=== PATIENT | female | born 1940 | race Caucasian/White ===

== ENCOUNTER 2017-09-09 08:29 | Day surgery (SDC) | payer MEDICARE, OTHER ==
[~2017-09-09 08:29] MED LIST: ACIPHEX20 MG PO; ADULT LOW DOSE81 MG PO; ARMOUR THYROID30 MG PO; CYMBALTA60 MG PO; FOLBIC RF TABL1 EACH PO; GLUCOPHAGE XR750 MG PO; K-TAB ER20 MEQ PO; MAGNESIUM400 MG PO; NORCO 7.5-3251 EACH PO; OMEGA 3 1,0001 EACH PO; SM GLUCOSAMINE1 EACH PO; TENORMIN50 MG PO; TRIAMTERENE-HC1 EAC1 PO; VITAMIN D-32000 UNIT PO
--- NOTE | 2017-09-09 08:54 | NUR ---
PATIENT ARRIVED TO DAY SURGERY AMBULATORY. PLACED IN ROOM 7. PATIENT VERIFIED BY NAME AND . ALLERGIES VERIFIED. CONSENT REVIEWED WITH PATIENT AND SIGNED. VS CHECKED. CALL LIGHT WITHIN REACH.
--- NOTE | 2017-09-09 09:37 | NUR ---
0935: BIOPTY BIOPSY PROCEDURE COMPLETE. DR. CARRINGTON ASSISTED BY OR NURSE FOR PROCEDURE. PATIENT TOLERATED PROCEDURE WELL. PATIENT DRESSED INDEPENDENTLY. PATIENT DISCHARGED TO HOME AMBULATORY.
--- NOTE | 2017-09-11 18:32 | OR ---
[facility] [address] [place], [place] [address] Signed DATE OF OPERATION: 09/09/2017 SURGEON: Tegan Carrington MD PREOPERATIVE DIAGNOSIS: Right subareolar mass. POSTOPERATIVE DIAGNOSIS: Right subareolar mass.. PROCEDURE: Right subareolar mass biopsy (Biopty gun biopsy). ANESTHESIA: 1% lidocaine. INDICATION: This 77-year-old white woman has a dense mass beneath the right areola. Imaging study shows uncertain findings. The biopsy is needed. She remains a patient of Dr. Meyers at this time. She has had thorough imaging by Dr. Higgins. A core biopsy with Biopty gun technique is recommended given the location of the lesion. She understands the risks of bleeding, infection, and so forth and wished to proceed. FINDINGS: The mass was dense and somewhat gritty and highly suspicious for malignancy. Four excellent core biopsies were obtained. DESCRIPTION OF PROCEDURE: In the supine position in the day surgery area, the periareolar area was prepared with a chlorhexidine solution and draped sterilely. A 1% lidocaine with epinephrine was injected locally. A small incision was made with an 11-blade. Using a Biopty gun biopsy device 14-gauge in size, four core biopsies were obtained without problem. These were sent for permanent pathology. A Band-Aid was applied. She tolerated the procedure well. Tegan Carrington MD Electronically Signed By: TEGAN CARRINGTON MD 09/11/17 1832 PATIENT NAME: SLIM SHAW OPERATIVE REPORT DATE OF : 36 REPORT #: [id number] PHYSICIAN: TEGAN CARRINGTON MD PCP: Anjali MEYERS MD REPORT IS CONFIDENTIAL AND NOT TO BE RELEASED WITHOUT AUTHORIZATION [address] [place], [place] [address] Signed /MEKA /[id number] cc: MD Anjali Anaya MD Copies: CONNIE HIGGINS MD, W NORMAN MD ~ Electronically Signed By: TEGAN CARRINGTON MD 09/11/17 1832 PATIENT NAME: SLIM SHAW OPERATIVE REPORT DATE OF : 38 REPORT #: [id number] PHYSICIAN: TEGAN CARRINGTON MD PCP: Anjali MEYERS MD REPORT IS CONFIDENTIAL AND NOT TO BE RELEASED WITHOUT AUTHORIZATION
[2017-09-11] MEDS ORDERED: SUCRALFATE1 GM/10 ML PO (19:59)
[2017-09-15] MEDS ORDERED: FENOFIBRATE54 MG PO (08:59)
[2017-09-15] MEDS ORDERED: JANUVIA100 MG PO (08:59)
== END 2017-09-09 18:00 | disposition home or self-care (01) ==
LOC: OPS 08:29 → DS 08:29 → OPS 09:30 → DS 09:30 → OPS 18:00
PROC: 0HBT3ZX Excision of Right Breast, Percutaneous Approach, Diagnostic (ICD-10-PCS; principal; 2017-09-09)
DX: C50.911 Malignant neoplasm of unspecified site of right female breast (principal); E11.9 Type 2 diabetes mellitus without complications; I10 Essential (primary) hypertension; E03.9 Hypothyroidism, unspecified; Z17.0 Estrogen receptor positive status [ER+]
CPT/HCPCS: 88305; 88342; 88360; 88377

== ENCOUNTER 2017-09-19 13:25 | Day surgery (SDC) | payer MEDICARE, OTHER ==
[~2017-09-19] VITALS: Ht 172.7 cm; Wt 75.6 kg
[~2017-09-19 13:25] MED LIST changes: +FENOFIBRATE54 MG PO; +JANUVIA100 MG PO; +SUCRALFATE1 GM/10 ML PO
--- NOTE | 2017-09-19 19:39 | NUR ---
09/19/171938 Magdalene Fink PT IS WAKING UP FROM ANESTHESIA. SHE IS REPORTING THAT SHE FEELS "FOREIGN" AND SHAKY. SHE IS GIVEN WARM BLANKETS AND EDUCATED THAT SHAKING AFTER ANESTHESIA CAN BE A NORMAL FEELING. SHE ORIGINALLY WAS DENYING PAIN, THEN TELLS ANOTHER RN AT THE BEDSIDE THAT SHE IS PAINFUL. SHE IS OFFERED PAIN MEDICATION AND SHE ACCEPTS THE OFFER.
--- NOTE | 2017-09-19 23:40 | NUR ---
WOKE PT TO GIVE EVENING MEDICATION, PT STATES SHE HAS NO NAUSEA OR PAIN AT THIS TIME. HELPED PT TO RESTROOM, SHE VOIDED 200. FRESH WATER IS AT BEDSIDE AND PT DENIES FURTHER NEEDS.
--- NOTE | 2017-09-20 | NUR ---
WOKE PT TO TAKE VS, SHE STATES SHE HAS NO PAIN OR NEEDS AT THIS TIME. CALL LIGHT IS WITHIN REACH.
--- NOTE | 2017-09-20 02:44 | NUR ---
PT IS RESTING WITH EYES CLOSED, RESPIRATIONS ARE EVEN AND NONLABORED. CALL LIGHT IS WITHIN REACH.
--- NOTE | 2017-09-20 04:55 | NUR ---
PT IS RESTING WITH EYES CLOSED, RESPIRATIONS ARE EVEN AND NONLABORED. CALL LIGHT IS WITHIN REACH.
--- NOTE | 2017-09-20 06:13 | NUR ---
PT REPORTS PAIN AT 7/10 WITH MOVEMENT, STARTED HER ON PERCOCET SINCE SHE WILL BE UP AND MOVING AROUND TODAY. PT DENIES FURTHER NEEDS AT THIS TIME.
--- NOTE | 2017-09-20 09:07 | NUR ---
MORNING ASSESSMENT AND MEDICATIONS DUE. THIS RN TO BEDSIDE. PT WATCHING TV. STATES 2/10 PAIN "THAT ISN'T REALLY PAIN." PT STATES FEELING "BETTER." ASSESSMENT DONE. PT DEMONSTARTES ABILITY TO EMPTY KHADIJAH DRAIN WITH ASSISTANCE FROM THIS RN. PT FINISEHD WITH BREAKFAST, ATE 100% AND STATES "IT TASTED SO GOOD." PT DENIES NAUSEA. MEDICATION GIVEN. PT STATES SHE HAS NO ADDITIONAL REQUESTS OR COMPLAINTS AT THIS TIME. CALL [facility] WITHIN REACH. BED RAILS UP X2. SCD'S ON.
[2017-09-20] MEDS ORDERED: IBUPROFEN600 MG PO (09:29)
[2017-09-20] MEDS ORDERED: MAPAP325 MG PO (09:30)
[2017-09-20] MEDS ORDERED: OXYCODON-ACETA1 EAC2 PO (09:30)
--- NOTE | 2017-09-20 10:59 | NUR ---
DISCHARGE ORDER IN AND COMPLETE. PT STATES SHE IS READY FOR DISCHARGE. DISCHARGE INSTRUCTIONS REVIWED WITH PT. PT DEMONSTARTES DRAINING AND RECORDING KHADIJAH DRAIN. PT APPOINTMENT NOTED TO BE ONE MONTH OUT WHICH IS DIFFERENT THAN WHAT MD STATED ABOUT DRAIN REMOVAL 1 WEEK FROM NOW. MD CONSULTED. ORDER CHANGED AND FOLLOW UP APPOINTMENT RESCHEDULED. PT VERBALIZES UNDERSTANDING OF DISCHARGE INSTRUCTIONS. PT STATES ALL HER QUESTIONS HAVE BEEN ANSWERED. 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 VITALS TAKEN. PIV REMOVED. PT DRESSES SELF AND IS WHEELED FROM UNIT.
--- NOTE | 2017-09-20 11:52 | OR ---
[facility] [address] [facility] [place] [place] [address] Signed DATE OF OPERATION: 09/19/2017 SURGEON: Tegan Carrington MD PREOPERATIVE DIAGNOSIS: Right infiltrating ductal subareolar breast carcinoma. POSTOPERATIVE DIAGNOSIS: 1. 2. Right infiltrating ductal subareolar breast carcinoma. 3. Evidence of axillary metastatic disease. PROCEDURE: 1. Injection of methylene blue dye for sentinel lymph node biopsy identification. 2. Deep axillary sentinel lymph node biopsies x3. 3. Central breast partial mastectomy including nipple-areolar complex with oncoplastic closure. 4. Completion axillary dissection for positive sentinel lymph node. MANAGER TALENT MANAGEMENT: Nurse. ANESTHESIA: General endotracheal; Sammi Meyer CRNA. INDICATION: This 77-year-old white woman is a patient of Dr. Ronaldo Meyers. She was noted to have a palpable mass beneath the right areola. Imaging study shows suspicion of malignancy. Biopty gun biopsy was undertaken under my direction on September 09, 2017 confirming infiltrating ductal breast carcinoma. Her options of management have been reviewed in detail and she opts for a breast conservation approach including partial mastectomy, sentinel lymph node biopsy, possible axillary dissection, anticipating at minimum an additional radiation therapy to the breasts and possibly chemotherapy depending on pathologic findings. Understanding this she wished to proceed. FINDINGS: The dense mass was very unmistakable beneath the right subareolar. Wide resection was undertaken including nipple-areolar complex and transverse configuration lying for oncoplastic closure techniques. Electronically Signed By: TEGAN CARRINGTON MD 09/20/17 1152 PATIENT NAME: SLIM SHAW OPERATIVE REPORT DATE OF : 38 REPORT #: [id number] PHYSICIAN: TEGAN CARRINGTON MD PCP: Anjali MEYERS MD REPORT IS CONFIDENTIAL AND NOT TO BE RELEASED WITHOUT AUTHORIZATION [facility] [address] [place], [place] [address] Signed As regard to the right axilla, there was excellent uptake of radionuclide, but no uptake really of methylene blue dye surprisingly. Nevertheless, sentinel lymph nodes were identified and frozen pathology confirmed metastatic disease to the initial sentinel lymph node. Additional sentinel lymph nodes were not pushed through frozen examination at this point, but of course will be examined more fully with the remaining axillary contents, which was excised subsequently. Within the axilla, palpable firm lymph nodes were noted. The axillary vein, long thoracic nerve, thoracodorsal neurovascular bundle, and so forth were all identified and preserved. DESCRIPTION OF PROCEDURE: The patient was received from Radiology suite having undergone image acquisition with radionuclide for sentinel lymph node identification. She was given a general endotracheal anesthetic. Sequential compression device stockings used. Heparin subcutaneously administered. Preoperative antibiotics given. Injection in the right periareolar area was undertaken. The sub epithelial space by me with methylene blue dye for augmentation of sentinel lymph node identification. Approximately 1.5 mL of methylene blue dye was used. The chest wall, breast and so forth were then prepped with a Betadine solution and draped sterilely. Using the C-Trak radionuclide probe, the area of maximal uptake was identified in the right axilla and a small transverse incision was made in that area just lateral to the pectoralis muscle. Dissection was carried through the subcutaneous tissue with blunt dissection. I saw no uptake of methylene blue dye, but using the C-Trak probe intense uptake to a sentinel lymph node was identified. This was dissected free and palpably was about a cm in size and very firm. This was sent as sentinel lymph node #1. Additional dissection was undertaken showing two other nodes of similar type. Again showing no sign of methylene blue uptake, but good uptake radioactive tracer. Upon waiting for the pathologist's report, attention was turned towards partial mastectomy. The axilla was packed with laparotomy gauze and the palpable lesion in the subareolar area identified more fully. An elliptical pattern was drawn on the breast in a transverse configuration, which would subsequent to the nipple areolar complex. The lesion was more in the inferior aspect and the superior aspect. A wide elliptical incision was undertaken using electrocautery primarily. Flaps were developed superiorly and inferiorly allowing for clinically negative margin of the lesion in question. Dissection was carried down nearly to the pectoralis fascia. A wide wedge of tissue including the nipple-areolar complex and the accompanying breast cancer mass was undertaken with a clinically negative margin. Irrigation was undertaken with sterile water for its tumor lytic defect and electrocautery was used for hemostasis. Electronically Signed By: TEGAN CARRINGTON MD 09/20/17 1152 PATIENT NAME: SLIM SHAW OPERATIVE REPORT DATE OF : 38 REPORT #: [id number] PHYSICIAN: TEGAN CARRINGTON MD PCP: Anjali MEYERS MD REPORT IS CONFIDENTIAL AND NOT TO BE RELEASED WITHOUT AUTHORIZATION [facility] [address] [place] [id number] Signed The breast wound was reapproximated transversely with interrupted 2-0 Vicryl suture in several layers. The skin was then closed in a running subcuticular 3-0 Vicryl for the skin. By this point, frozen pathology was returned by the examining pathologist, Dr. Srikanth Steve. This confirmed metastatic disease to at least the initial sentinel lymph node. Additional sentinel lymph nodes were then designated to be used under permanent pathology and no frozen pathology further was undertaken. Plans were made for axillary dissection. The incision was extended and dissection carried through the subcutaneous tissue with blunt and electrocautery dissection. Superior dissection and sharp technique allowed for identification of the axillary vein. Tissue was taken inferiorly from this as well as medially as far as reasonable making it essentially level 3 axillary dissection. Clips were used for hemostatic benefit. The long thoracic and thoracodorsal neurovascular bundle identified and preserved. The lymph tissue between these structures was taken fully down through the lower part of the axilla. Generous axillary packet was thus obtained. Palpation did show some firm lymph nodes in this tissue as well. Irrigation was undertaken with sterile water for its tumor-lytic effect. Hemostasis was assured with electrocautery and a few clips as necessary. Through a separate stab incision, a 7 mm flat Lance drain was placed and secured to the skin with nylon suture. It was trimmed to the appropriate length. Plans were then made for closure. The deep subcutaneous tissue was reapproximated with interrupted 2-0 Vicryl and a running subcuticular 3-0 Vicryl was used for the skin. Steri-Strips were applied as was Mepilex silver sponge dressing and an OpSite. The patient was ultimately extubated and transferred to recovery room od condition having suffered no complications. Sponge, needle, and instrument counts reported as correct x3. MD LAVONNE Bear/MOHIT /[id number] Electronically Signed By: TEGAN CARRINGTON MD 09/20/17 1152 PATIENT NAME: SLIM SHAW OPERATIVE REPORT DATE OF : 38 REPORT #: [id number] PHYSICIAN: TEGAN CARRINGTON MD PCP: Anjali MEYERS MD REPORT IS CONFIDENTIAL AND NOT TO BE RELEASED WITHOUT AUTHORIZATION [address] [address] Signed cc: MD Sarah Barbosa MD Copies: Anjali MEYERS MD, CYNTHIA SUE MD ~ Electronically Signed By: TEGAN CARRINGTON MD 09/20/17 1152 PATIENT NAME: SLIM SHAW OPERATIVE REPORT DATE OF : 38 REPORT #: [id number] PHYSICIAN: TEGAN CARRINGTON MD PCP: Anjali MEYERS MD REPORT IS CONFIDENTIAL AND NOT TO BE RELEASED WITHOUT AUTHORIZATION
== END 2017-09-20 10:50 | disposition home or self-care (01) ==
LOC: DS 13:25 → MS 13:25 → DS 14:25 → NUC 14:30 → DS 14:30 → EDSTATUS 14:30 → MS 22:00 → DS 09-20 10:50
PROVIDERS: Surgery
PROC: 0HBT0ZZ Excision of Right Breast, Open Approach (ICD-10-PCS; principal; 2017-09-19 18:00)
DX: C77.3 Secondary and unspecified malignant neoplasm of axilla and upper limb lymph nodes (principal); C50.011 Malignant neoplasm of nipple and areola, right female breast; E11.9 Type 2 diabetes mellitus without complications; I10 Essential (primary) hypertension; E03.9 Hypothyroidism, unspecified; K21.9 Gastro-esophageal reflux disease without esophagitis; Z98.890 Other specified postprocedural states; Z79.899 Other long term (current) drug therapy; Z17.0 Estrogen receptor positive status [ER+]
CPT/HCPCS: 00406; 78195; 88305; 88307; 88341; 88342; A9541; J0690; J1644; J2250; J2270; J2405; J2704; J3010; J7120

== ENCOUNTER 2017-10-13 08:37 | Day surgery (SDC) | payer MEDICARE, OTHER ==
[~2017-10-13] VITALS: Ht 172.7 cm; Wt 75.6 kg
[~2017-10-13 08:37] MED LIST changes: +IBUPROFEN600 MG PO; +MAPAP325 MG PO; +OXYCODON-ACETA1 EAC2 PO
--- NOTE | 2017-10-13 10:50 | NUR ---
UPDATED WITH WAIT. IV PATENT. UPSET WITH WAIT.
[2017-10-13] MEDS ORDERED: OXYCODON-ACETA1 EAC2 PO (13:31)
--- NOTE | 2017-10-13 13:37 | NUR ---
10/13/17 1337 Bharti Sutherland 1317 PT ARRIVED TO PACU DROWSY. RESP EVEN AND UNALBORED ON RA. 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 1320 XRAY AT BEDSIDE PER MD. PT DENINES NAUSEA, REPORTS PAIN 3/10 AND TOLERABLE.
--- NOTE | 2017-10-14 16:43 | OR ---
[facility] [address] [place], [place] [address] Signed DATE OF OPERATION: 10/13/2017 SURGEON: Tegan Carrington MD PREOPERATIVE DIAGNOSIS: Stage III right breast cancer, status post central breast excision and completion right axillary dissection. POSTOPERATIVE DIAGNOSIS: Stage III right breast cancer, status post central breast excision and completion right axillary dissection. PROCEDURE: 1. Left subclavian Bard port catheter placement. 2. Surgeon-directed fluoroscopy. ANESTHESIA: Local with monitored anesthesia care Laura HELIO Herrera and local anesthetic, 20 mL of 1% lidocaine. INDICATION: This 77-year-old white woman is a patient of Dr. Benedicto Underwood, was found to have a central subareolar breast cancer, for which she has undergone central breast excision with a negative margin, as well as sentinel lymph node biopsies, which were positive culminating in completion axillary dissection. 18 of 19 lymph nodes were noted to be positive for metastatic disease. Her tumor type is infiltrating lobular carcinoma. ER receptors are positive. A plan for chemotherapy has been outlined by Dr. Cantu and postoperative radiation therapy organized with Dr. Moon Beltran in [place]. The patient understands risks of bleeding, infection, pneumothorax, and other unforeseen complications related to placement of a Port-A-Cath device for anticipated chemotherapy and wished to proceed. FINDINGS: Dark nonpulsatile blood was noted from the left subclavian vein. Fluoroscopic visualization throughout the procedure showed the catheter to be well positioned with the tip in the superior vena cava with a gentle curve on the catheter in good function at conclusion of procedure. DESCRIPTION OF PROCEDURE: The patient was brought to the operating room, placed in supine position. Pillow was Electronically Signed By: TEGAN CARRINGTON MD 10/14/17 1643 PATIENT NAME: SLIM SHAW OPERATIVE REPORT DATE OF : 38 REPORT #: [id number] PHYSICIAN: TEGAN CARRINGTON MD PCP: BENEDICTO UNDERWOOD MD REPORT IS CONFIDENTIAL AND NOT TO BE RELEASED WITHOUT AUTHORIZATION [facility] [address] [place], [place] [address] Signed removed. The patient's face turned to the right. She was given intravenous sedation, and preoperative antibiotic Ancef. Sequential compression device stockings and heparin subcutaneously was administered. The upper torso was prepared with a chlorhexidine solution and draped sterilely. A 1% lidocaine was injected beneath the left infraclavicular space. Using a Seldinger technique, the left subclavian vein was accessed easily on single pass showing dark nonpulsatile blood. A flexible J-wire was passed down the needle and the needle was removed. Fluoroscopy confirmed the wire to be in the right heart system. Local anesthetic was injected transversely over the left pectoralis, and a transverse incision was made. Dissection was carried through the subcutaneous tissue with electrocautery, and a pocket created inferiorly to the incision. A port device was irrigated and partially secured to the pectoralis fascia, and made to stay free of contact with the skin itself. The site with wire emanating from it was incised with #11 blade and subsequently dilator and peel-away sheath introducer passed over the wire and the wire and dilator removed. The previously inspected Bard port Groshong catheter was passed down the sheath. It had been irrigated with heparinized saline previously. The sheath was removed. Both removed segments appeared equal in length. Aspiration on the device showed easy withdrawal of blood and easy flushing with heparinized saline. Fluoroscopy was used to identify the catheter and it was uncertain where the tip was, and on that basis a small amount of intravenous contrast was passed into the catheter. Under fluoroscopic control, the catheter was withdrawn so the tip would lie in the atrial caval junction. Additional flushing with heparinized saline was then undertaken. Using the tunneling device the catheter was delivered to the pocket and trimmed to the appropriate length and secured to the port, and attached with the collar device as per manufacture's instructions. The port was secured to the pectoralis fascia with previously placed Vicryl suture. Access to the port was undertaken with an angled Cordon needle allowing for easy withdrawal of blood and easy flushing with heparinized saline. The length traversed from the pocket to the insertion site beneath the clavicles approximately 5 cm or so, and to be certain there was no kink or other problem. An angiogram was obtained with contrast through the port device showing a gentle curve. No sign of kinking or other problem. The port was once again flushed. The pocket was then secured with interrupted 2-0 Vicryl suture, and the skin was then closed with running subcuticular 3-0 Vicryl. Steri-Strips were applied. The percutaneous access was once again undertaken with angled Cordon needle showing easy withdrawal of blood and easy flushing. A Mepilex silver sponge dressing was applied. The patient was allowed to emerge from sedation and taken to recovery room in good condition having suffered no Electronically Signed By: TEGAN CARRINGTON MD 10/14/17 1643 PATIENT NAME: SLIM SHAW OPERATIVE REPORT DATE OF : 38 REPORT #: [id number] PHYSICIAN: TEGAN CARRINGTON MD PCP: BENEDICTO UNDERWOOD MD REPORT IS CONFIDENTIAL AND NOT TO BE RELEASED WITHOUT AUTHORIZATION [facility] [address] [place] [address] Signed complication. BLOOD LOSS: Less than 15 mL in total. MD LAVONNE Bear/MOHIT /[id number] cc: MD Moon Murphy MD Robert C Quackenbush, MD Copies: BENEDICTO UNDERWOOD MD, KRISTEN M MD QUACKENBUSH, ROBERT C MD ~ Electronically Signed By: TEGAN CARRINGTON MD 10/14/17 1643 PATIENT NAME: SLIM SHAW OPERATIVE REPORT DATE OF : 38 REPORT #: [id number] PHYSICIAN: TEGAN CARRINGTON MD PCP: BENEDICTO UNDERWOOD MD REPORT IS CONFIDENTIAL AND NOT TO BE RELEASED WITHOUT AUTHORIZATION
== END 2017-10-13 14:30 | disposition home or self-care (01) ==
LOC: DS 08:37 → OPS 08:37 → DS 11:15 → OPS 14:30
PROVIDERS: Surgery
PROC: 05H633Z Insertion of Infusion Device into Left Subclavian Vein, Percutaneous Approach (ICD-10-PCS; 2017-10-13)
PROC: B517ZZA Fluoroscopy of Left Subclavian Vein, Guidance (ICD-10-PCS; 2017-10-13)
PROC: 0JH60WZ Insertion of Totally Implantable Vascular Access Device into Chest Subcutaneous Tissue and Fascia, Open Approach (ICD-10-PCS; principal; 2017-10-13 11:15)
DX: C50.111 Malignant neoplasm of central portion of right female breast (principal); E11.9 Type 2 diabetes mellitus without complications; I10 Essential (primary) hypertension; E03.9 Hypothyroidism, unspecified; Z79.899 Other long term (current) drug therapy; Z90.12 Acquired absence of left breast and nipple
CPT/HCPCS: 00532; 71045; 77001; C1788; J0690; J1644; J2704; J7120

== ENCOUNTER 2021-01-26 05:40 | Day surgery (SDC) | payer MEDICARE, OTHER ==
--- NOTE | 2021-01-20 14:57 | NUR ---
DOS:01/26/21 STAIRS: HAS MANY STEPS INTO HER HOME AND INSIDE THE HOME. A STEP OR TWO FROM LIVINGROOM TO KITCHEN AND THEN HER HOME IS A TWO STORY SO ABOUT 13 TO 16 STEPS TO THE UPSTAIRS. HAS A BEDROOM ON THE MAIN FLOOR OF THE HOME AND WILL STAY IN IT TILL ABLE TO COMPLETE STAIRS BETTER TOILETS: HAS RAIL ON THE UP STAIRS BATHROOM AND SHOWER AND THE MAIN FLOOR BATHROOM HAS A SEAT OVER IT SO THAT IT MAKES A TALL TOILET. WALKER: HAS A FWW AND CANE APPOINTMENTS AND PHYSICAL: WILL TAKE HER TO ALL THAT SHE NEEDS TO GO TO. WILL BE HOME WITH HER.
[~2021-01-26] VITALS: Ht 175.3 cm; Wt 72.3 kg
[~2021-01-26 05:40] MED LIST changes: +ELIQUIS5 MG PO; +FEMARA2.5 MG NG; +IRON160 MG PO; +PILOCARPINE HCL5 MG PO; +VIT C-ROSE HIP500 MG PO
[2021-01-26] MEDS ORDERED: CELECOXIB200 MG PO (09:20)
[2021-01-26] MEDS ORDERED: XARELTO10 MG PO (09:20)
[2021-01-26] MEDS ORDERED: OXYCODONE HCL5 MG PO (09:20)
[2021-01-26] MEDS ORDERED: SENNA LAX8.6 MG PO (09:21)
[2021-01-26] MEDS ORDERED: CEFPROZIL500 MG PO (09:22)
--- NOTE | 2021-01-26 09:35 | NUR ---
01/26/21 0935 Chris,Bharti 1630 PT ARRIVED TO PACU ON 6L VIA MASK, PT WAKES AND DENIES PAIN AND NAUSEA. PT REORIENTED TO PACU. VSS. 0930 O2 REMOVED AND PT ABLE TO MOVE FEET BUT REPORT NUMBNESS AND TINGLING. SPINAL EDUCATION GIVEN.
--- NOTE | 2021-01-26 10:39 | NUR ---
PATIENT BACK TO ROOM FROM PACU. REPORT RECEIVED FROM MAL PANDYA. VSS. PATIENT STATES PAIN IS 0/10, DENIES NAUSEA. PATIENT REPORTS LEFT HIP AREA NUMB. SHE CAN MOVE HER TOES ON THE LEFT SIDE. PATIENTS DRESSINGS ARE CLEAN, DRY, AND INTACT. PROVIDED PATIENT WITH COFFEE AND CRACKERS. AT BEDSIDE. CALL LIGHT WITHIN REACH.
--- NOTE | 2021-01-26 11:45 | NUR ---
PATIENT RESTING COMFORTABLY IN BED. VSS. PATIENT RATES PAIN 0/10, STATES THE SURGICAL SITES ARE NOT NUMB BEFORE. DENIES NAUSEA. BOTH DRESSINGS ARE CLEAN, DRY, AND INTACT. PATIENT IS DRINKING COFFEE AND WATER AND EATING CRACKERS. AT BEDSIDE. CALL LIGHT WITHIN REACH.
--- NOTE | 2021-01-26 12:53 | NUR ---
PATIENT RESTING COMFORTABLY IN BED. PATIENT RATES HER PAIN A 5/10. STATES THE PAIN IS FROM HER MAIN SURGICAL SITE AND RADIATES DOWN TOWARDS HER KNEE. PAIN MEDICATION GIVEN PER MAR. BOTH DRESSINGS ARE CLEAN, DRY, AND INTACT. VSS. PATIENT DRINKING WATER AND COFFEE. AT BEDSIDE. PT WAS CALLED AT 1225. CALL LIGHT WITHIN REACH.
--- NOTE | 2021-01-26 13:35 | NUR ---
PT IN WITH PATIENT.
--- NOTE | 2021-01-26 14:30 | NUR ---
PATIENT BACK FROM PT VIA WHEELCHAIR. P.T. STATES HER BP WAS 93/51 THEN 96/49. PATIENT FELT DIZZY. THEY GAVE HER WATER AND JELLO. HER BLOOD SUGAR AFTER JELLO WAS 248. PATIENT LAYING IN BED STATING NOT FEELING DIZZY JUST A LITTLE "FUZZY" IN HER HEAD. BP IN DAY SURGERY WAS 89/44. HOOKED PATIENT BACK UP TO HER IV AND STARTED FLUIDS. HER PAIN WAS 1-2/10. DRESSING WAS CLEAN, DRY, AND INTACT. AT BEDSIDE. 1450- BP WAS 106/54, HR-69, O2-97 ON RA. PATIENT STATES SHE IS FEELING BETTER AT THIS TIME. ORDERED PATIENT A SANDWICH.
--- NOTE | 2021-01-26 15:06 | NUR ---
PATIENT GIVEN MEDS PER MAR. PATIENT DECLINED TRAMADOL. STATES SHE IS FEELING BETTER AND NO LONGER FEELING FUZZY. SHE IS EATING HER SANDWICH AND DRINKING WATER. 1520 - BP-135/53, HR-70, R-15, O2-97% ON RA.
--- NOTE | 2021-01-26 16:25 | NUR ---
P.T. TO PATIENTS ROOM AT 1605. PATIENT WALKED AROUND NURSES STATION TWICE WITH NO ISSUES. 1625 - PATIENT BACK TO BED. PATIENT STATES SHE FEELS GOOD, A LITTLE SHORT OF BREATH AFTER HER WALK. BP-85/55, HR-71, TEMP-96.9, O2- [address] MARSH. GAVE VO FOR 500ML NORAL SALINE BOLUS. 1635- STARTED IV BOLUS.
--- NOTE | 2021-01-26 17:03 | NUR ---
NORMAL SALINE BOLUS COMPLETE. PATIENT UP WITH 1 RN ASSIST WITH WALKER. PATIENT WALKED AROUND NURSES STATION TWICE. 1715- PATIENT VOIDED 115 ML 1720- PATIENT BACK TO BED. TOLERATED WALK WELL. PAIN A 3/10. PAIN MEDICATION GIVEN PER JUL. PATIENTS DRESSING FOR THE LARGE INCISION HAS A SMALL AMOUNT OF RED DRAINAGE. SMALL INCISION DRESSING IS CLEAN, DRY, AND INTACT. VSS. PHONE CALL TO DR. MARSH. DR MARSH CLEARED PATIENT TO BE DISCHARGED HOME.
--- NOTE | 2021-01-26 17:40 | NUR ---
PROVIDED PATIENT WITH DISCHARGE INSTRUCTIONS. PATIENT VERBALIZED UNDERSTANDING AND ALL QUESTIONS WERE ANSWERED. PATIENT WAS FEELING WELL. SHE AMBULATED WITH WALKER TO WHEELCHAIR. PROVIDED PATIENT WHEELCHAIR RIDE TO FRONT OF HOSPTIAL WHERE HER WAS WAITING WITH CAR.
--- NOTE | 2021-01-27 07:28 | OR ---
[facility] [address] [place], [place] [address] Signed DATE OF OPERATION: 01/26/2021 SURGEON: Ora Steve MD PREOPERATIVE DIAGNOSIS: Degenerative joint disease left hip, severe. POSTOPERATIVE DIAGNOSIS: Degenerative joint disease left hip, severe. PROCEDURE PERFORMED: Left total hip arthroplasty with Ramy. ENVIRONMENTAL EMERGENCIES ASSISTANT: Alma Rosa Foster PA-C. Alma Rosa was present and critical for all portions of procedure. ANESTHESIA: Spinal. BLOOD LOSS: 150 mL. IMPLANTS: Jerome Accolade II size 4 stem with a 54 cup and -5 head. BRIEF HISTORY: Sarah is an 80-year-old female with progressive worsening of hip arthritis and significant limp. She was unable to perform everyday activities without severe pain. Risks and benefits of operative treatment were discussed with her and she elected to proceed. DESCRIPTION OF PROCEDURE: Once consent was obtained she was taken to the operating room after adequate anesthesia she was placed in right lateral decubitus position. All downside pressure points well padded. The left hip was prepped and draped in a standard sterile fashion. The computer ray for the Ramy system was then placed percutaneously and through three separate stab incisions in the posterior iliac crest. Three fingers were posterior to the ASIS. The three Schanz pins were placed in good alignment and was quite stable. The approach to the hip was then taken through anterior lateral incision carried through Electronically Signed By: ORA STEVE MD 01/27/21 0728 PATIENT NAME: SARAH SHAW OPERATIVE REPORT DATE OF : 36 REPORT #: [id number] PHYSICIAN: ORA STEVE MD PCP: BENEDICTO UNDERWOOD MD REPORT IS CONFIDENTIAL AND NOT TO BE RELEASED WITHOUT AUTHORIZATION [facility] [address] [place], [place] [address] Signed skin and subcutaneous tissue. The ID band was divided longitudinally. The vastus lateralis was then split from the anterior greater trochanter distally and elevated subperiosteally. The modification of the Martin approach was undertaken with the arthrotomy being at the anterior margin of the gluteus medius. This was taken down to the anterior capsule. The muscle was then swept off the anterior capsule around medially. The capsule was then split longitudinally and elevated anteriorly and posteriorly up into the saddle and onto the greater trochanter. The capsule was then released from the acetabulum and peeled back. This allowed good visualization of the acetabular rim. The capsulotomy was then performed around the anterior inferior neck. The hip was quite . We were unable to fully dislocate it safely. We then made the femoral neck cut one fingerbreadth above the lesser trochanter and another napkin ring cut. The napkin ring was removed using a Schanz pin as was the femoral head. Once this was accomplished, the periacetabular soft tissue was further released and the pulvinar was removed. We then registered the pelvis with the computer. Fine anatomic points of the hip were registered. The reamer was then brought in and the acetabulum was reamed to the proper depth. This was done with a 52 followed by a 54 reamer. The 54 cup was then impacted in 40 degrees of abduction and 20 degrees of anteversion. Once this was accomplished, the polyethylene liner was impacted. Both were stable with no need for screws. The attention was then turned to the proximal femur. The proximal femur was released posteriorly little bit more and elevated. This allowed good visualization of the femoral canal. We then used a cookie cutter to open the canal followed by the Willian awl. It was then sequentially broached up to a size 5. We then placed a -5 head and reduced the hip, it was quite long and very tight. We then removed the trials. I cut the femoral neck down further 5 mm and put a four broach in with a -5. We then had excellent soft tissue tension and the equal leg lengths. The hip was dislocated. The trials were removed. The final four stem was then impacted until it was well seated. The -5 head was impacted. The hip was reduced. Again, leg length changes were found to be per plan. The wound was then copiously soaked in IrriSept irrigation followed by 3 L of normal saline. The vastus lateralis layer was then closed using a combination of #1 Vicryl and #2 Stratafix. The IT band was closed using #2 Stratafix and subcutaneous tissue with another Stratafix. The skin was closed with three 3-0 Stratafix, and Steri-Strips. Wound was dressed with an Acticoat 7 dressing. She was awakened and taken to the recovery room in satisfactory condition. All sponge, needle, and instrument counts were correct. Ora Steve MD BA/MODL Electronically Signed By: ORA STEVE MD 01/27/21 0728 PATIENT NAME: SARAH SHAW OPERATIVE REPORT DATE OF : 36 REPORT #: [id number] PHYSICIAN: ORA STEVE MD PCP: BENEDICTO UNDERWOOD MD REPORT IS CONFIDENTIAL AND NOT TO BE RELEASED WITHOUT AUTHORIZATION [facility] [address] [address] Signed /[id number] Copies: ~ Electronically Signed By: ORA STEVE MD 01/27/21 0728 PATIENT NAME: SARAH SHAW OPERATIVE REPORT DATE OF : 36 REPORT #: [id number] PHYSICIAN: ORA STEVE MD PCP: BENEDICTO UNDERWOOD MD REPORT IS CONFIDENTIAL AND NOT TO BE RELEASED WITHOUT AUTHORIZATION
== END 2021-01-26 17:45 | disposition home or self-care (01) ==
LOC: DS 05:40
PROVIDERS: ATTEND Specialist
PROC: 0SRB01Z Replacement of Left Hip Joint with Metal Synthetic Substitute, Open Approach (ICD-10-PCS; principal; 2021-01-26 06:45)
DX: M16.12 Unilateral primary osteoarthritis, left hip (principal); G89.18 Other acute postprocedural pain; I48.91 Unspecified atrial fibrillation; E03.9 Hypothyroidism, unspecified; I10 Essential (primary) hypertension; E11.9 Type 2 diabetes mellitus without complications; K21.9 Gastro-esophageal reflux disease without esophagitis; Z88.5 Allergy status to narcotic agent; Z85.3 Personal history of malignant neoplasm of breast; Z90.10 Acquired absence of unspecified breast and nipple; Z95.0 Presence of cardiac pacemaker; Z79.84 Long term (current) use of oral hypoglycemic drugs; Z79.01 Long term (current) use of anticoagulants
CPT/HCPCS: 01214; 64447; 64450; 72170; 76942; 88305; 97116; 97162; C1713; C1776; J0690; J1100; J1885; J2001; J2250; J2405; J2704; J2795; J7040; J7121

== ENCOUNTER 2022-04-30 10:11 | Emergency (ER) | payer MEDICARE, OTHER ==
[~2022-04-30] VITALS: Ht 175.3 cm; Wt 76.9 kg
[~2022-04-30 10:11] MED LIST changes: +CEFPROZIL500 MG PO; +CELECOXIB200 MG PO; +OXYCODONE HCL5 MG PO; +SENNA LAX8.6 MG PO; +XARELTO10 MG PO
== END 2022-04-30 18:06 | disposition short-term general hospital (02) ==
LOC: ED 10:11
DX: N17.9 Acute kidney failure, unspecified (principal); I50.9 Heart failure, unspecified; Z88.5 Allergy status to narcotic agent; Z88.8 Allergy status to other drugs, medicaments and biological substances; Z79.899 Other long term (current) drug therapy; Z79.01 Long term (current) use of anticoagulants; Z20.822 Contact with and (suspected) exposure to COVID-19
CPT/HCPCS: 36415; 51702; 51798; 71045; 74176; 80048; 80053; 81001; 83605; 83880; 84484; 85025; 85379; 87088; 87502; 93306; 99285-25; C9803; J0692; J1265; J2405; J7030; J7040; U0003